=== PATIENT | female | born 1975 | race Caucasian/White ===

== ENCOUNTER 2023-08-24 15:48 | Emergency (ER) | payer OTHER ==
[~2023-08-24] VITALS: Ht 157.5 cm; Wt 64.9 kg
[2023-08-24 16:36] VITALS: BP 124/75; PULSE 66; RESP 16; TEMP 98.2; O2SAT 98
[2023-08-24 16:53] VITALS: O2SAT 98
[2023-08-24] MEDS: NACL 0.9% 1,000 ML IV ONE (17:36)
[2023-08-24] MEDS: diphenhydrAMINE 50 MG/ML VIAL IVP ONE (18:02)
[2023-08-24] MEDS: ONDANSETRON 4 MG/2 ML VIAL IVP ONE (18:03)
[2023-08-24 18:04] LABS: BASOPHILS # (AUTO) 0.1 K/uL (0.00-0.22); BASOPHILS % (AUTO) 0.9 % (0.0-2.0); EOSINOPHILS # (AUTO) 0.3 K/uL (0-0.4); EOSINOPHILS % (AUTO) 3.9 % (0.0-4.0); HEMATOCRIT 34.6 % (36-48); HEMOGLOBIN 11.2 g/dL (12.0-16.0); LYMPHOCYTES # (AUTO) 2.9 K/uL (2.5-16.5); LYMPHOCYTES % (AUTO) 38.8 % (20.5-51.1); MEAN CORPUSCULAR HEMOGLOBIN 24 pg (27-31); MEAN CORPUSCULAR HGB CONC 33 g/dL (33-37); MEAN CORPUSCULAR VOLUME 74.1 fL (80-94); MONOCYTES # (AUTO) 0.8 K/uL (0.8-1.0); MONOCYTES % (AUTO) 10.9 % (1.7-9.3); NEUTROPHILS # (AUTO) 3.4 K/uL (1.8-7.7); NEUTROPHILS % (AUTO) 45.5 % (42.2-75.2); PLATELET COUNT (AUTO) 245 K/uL (140-450); RED BLOOD CELL COUNT(AUTO) 4.67 MIL/uL (4.20-5.40); RED CELL DISTRIBUTION WIDTH 17.2 % (11.6-13.7); WHITE BLOOD COUNT (AUTO) 7.4 K/uL (4.8-10.8)
[2023-08-24] MEDS: METOCLOPRAMIDE 10 MG/2 ML INJ VIAL IVP ONE (18:04)
[2023-08-24 18:14] LABS: ANION GAP 10.2 (8-16); CALCIUM 8.5 mg/dL (8.5-10.1); CARBON DIOXIDE 28.4 mmol/L (21-32); CREATININE 0.7 mg/dL (0.6-1.3); POTASSIUM 3.6 mmol/L (3.5-5.1)
[2023-08-24 18:33] LABS: ALANINE AMINOTRANSFERASE 23 U/L (12-78); ALKALINE PHOSPHATASE 88 U/L (50-136); ASPARTATE AMINOTRANSFERASE 19 U/L (15-37); TOTAL BILIRUBIN 0.1 mg/dL (0.0-1.0); TOTAL PROTEIN, SERUM 8.1 g/dL (6.4-8.2)
[2023-08-24 18:59] VITALS: O2SAT 98
[2023-08-24 19:15] VITALS: BP 116/66; PULSE 78; RESP 19; TEMP 98.2; O2SAT 98
[2023-08-24] MEDS ORDERED: MECLIZINE 25 MG TAB ONE (19:17)
[2023-08-24] MEDS: MECLIZINE 25 MG TAB PO ONE (19:17)
[2023-08-24] MEDS ORDERED: MECL-303 PO (19:23)
[2023-08-24] MEDS ORDERED: ONDA-188 SL (19:49)
== END 2023-08-24 19:52 | disposition home or self-care (01) ==
LOC: MED 15:48
DX: H81.399 Other peripheral vertigo, unspecified ear (principal); R07.89 Other chest pain; Z86.2 Personal history of diseases of the blood and blood-forming organs and certain disorders involving the immune mechanism; E78.5 Hyperlipidemia, unspecified; J45.909 Unspecified asthma, uncomplicated; Z79.899 Other long term (current) drug therapy; Z90.710 Acquired absence of both cervix and uterus; Z88.8 Allergy status to other drugs, medicaments and biological substances
CPT/HCPCS: 36415; 71045; 80048; 80076; 84484; 85025; 93005; 96361; 96374; 96375; 99285; J1200; J2405; J2765; J7030; J8597

== ENCOUNTER 2023-10-12 09:45 | Emergency (ER) | payer OTHER ==
[~2023-10-12] VITALS: Ht 157.5 cm; Wt 63.5 kg
[~2023-10-12 09:45] MED LIST: MECL-303 PO; ONDA-188 SL
[2023-10-12 10:14] VITALS: BP 113/76; PULSE 56; RESP 18; TEMP 97.1; O2SAT 99
[2023-10-12] MEDS ORDERED: POLY17PD72 PO (12:35)
[2023-10-12] MEDS ORDERED: HYDR25SU37 RC (12:35)
[2023-10-12] MEDS ORDERED: DOCU-299 PO (12:35)
[2023-10-12] MEDS ORDERED: HYD1C TP (12:35)
[2023-10-12 13:00] VITALS: BP 113/76; PULSE 56; RESP 18; TEMP 97.1; O2SAT 99
== END 2023-10-12 13:05 | disposition home or self-care (01) ==
LOC: MED 09:45
DX: K64.2 Third degree hemorrhoids (principal); J45.909 Unspecified asthma, uncomplicated; Z79.899 Other long term (current) drug therapy; Z88.8 Allergy status to other drugs, medicaments and biological substances
CPT/HCPCS: 99284